=== PATIENT | female | born 1995 | race Caucasian/White ===

== ENCOUNTER → 2016-11-22 | Outpatient (CLI) | payer OTHER, BC ==
[2016-11-22 13:48] LABS: MANUAL MICROSCOPIC REQUIRED? NO; REVIEW REQ? NO; URINE APPEARANCE CLEAR (CLEAR); URINE BILIRUBIN NEG (NEG); URINE COLOR YELLOW; URINE EPITHELIAL CELL AUTO >30 /lpf (0-5); URINE NITRITE NEG (NEG); URINE PH 7.5 (4.5-7.5); URINE SPECIFIC GRAVITY 1.022 (1.000-1.030); UROBILINOGEN NEG (NEG)
== END | disposition home or self-care (01) ==
LOC: C.LABSPEC 13:15
PROVIDERS: ATTEND Obstetrics & Gynecology
DX: Z34.01 Encounter for supervision of normal first pregnancy, first trimester (principal)

== ENCOUNTER → 2016-11-29 | Outpatient (CLI) | payer OTHER, BC ==
[2016-11-29 10:17] LABS: BASO % 0.1 %; BASO ABS # 0.01 K/uL (0-0.2); COMPLETE YES; EOS % 0.6 %; HEMATOCRIT 40.2 % (37-47); IG% 0.1 %; LYMPH % 22.9 %; LYMPH ABS # 1.94 K/uL (1.2-3.4); MEAN CELL VOLUME 89.5 fL (80-100); MEAN CORPUSCULAR HEMOGLOBIN 30.5 pg (25-34); MEAN CORPUSCULAR HGB CONC 34.1 g/dl (32-36); MEAN PLATELET VOLUME 10.2 fL (7.4-10.4); MONO % 6.7 %; NEUT % 69.6 %; PLATELET COUNT 359 K/uL (130-400); RED BLOOD COUNT 4.49 M/uL (4.2-5.4); WHITE BLOOD COUNT 8.47 K/uL (4.8-10.8)
[2016-12-01 02:56] LABS: CHLAMYDIA TRACH RNA*** NOT DETECTED (NOT DETECTED); GC (NEIS GONORRHOEAE)RNA** NOT DETECTED (NOT DETECTED)
== END | disposition home or self-care (01) ==
LOC: C.LAB1850 09:02
PROVIDERS: ATTEND Obstetrics & Gynecology
DX: Z34.01 Encounter for supervision of normal first pregnancy, first trimester (principal)

== ENCOUNTER → 2017-01-24 | Outpatient (CLI) | payer OTHER, BC ==
[~2017-01-24] MED LIST: ACET-1256 PO; MISC-696; NITR1CAP16 PO; OXYC-57 PO; PRENTAB26 PO
[2017-01-24 13:53] LABS: GTGD 50 Grams
== END | disposition home or self-care (01) ==
LOC: C.LAB1850 08:55
PROVIDERS: ATTEND Obstetrics & Gynecology
DX: Z34.02 Encounter for supervision of normal first pregnancy, second trimester (principal)

== ENCOUNTER → 2017-03-21 | Outpatient (CLI) | payer OTHER, BC | END | disposition home or self-care (01) | LOC: C.CPL 10:48 | PROVIDERS: ATTEND Obstetrics & Gynecology | DX: O28.3 Abnormal ultrasonic finding on antenatal screening of mother (principal); Z3A.00 Weeks of gestation of pregnancy not specified ==

== ENCOUNTER → 2017-04-18 | Outpatient (CLI) | payer OTHER, BC ==
[2017-04-18 19:16] LABS: GTGD 50 Grams
== END ==
LOC: C.LAB1850 17:11
PROVIDERS: ATTEND Obstetrics & Gynecology
DX: Z34.03 Encounter for supervision of normal first pregnancy, third trimester (principal)

== ENCOUNTER → 2017-05-02 | Outpatient (CLI) | payer OTHER, BC ==
[2017-05-02 18:57] LABS: URINE APPEARANCE CLEAR (CLEAR); URINE BILIRUBIN NEG (NEG); URINE COLOR YELLOW; URINE EPITHELIAL CELL AUTO >30 /lpf (0-5); URINE NITRITE NEG (NEG); URINE PH 6.5 (4.5-7.5); URINE SPECIFIC GRAVITY 1.019 (1.000-1.030); UROBILINOGEN NEG (NEG)
[2017-05-02 19:02] LABS: MANUAL MICROSCOPIC REQUIRED? NO; REVIEW REQ? NO
== END | disposition home or self-care (01) ==
LOC: C.LABSPEC 17:48
PROVIDERS: ATTEND Obstetrics & Gynecology
DX: Z34.03 Encounter for supervision of normal first pregnancy, third trimester (principal)

== ENCOUNTER → 2017-06-13 | Outpatient (CLI) | payer OTHER, BC | END | disposition home or self-care (01) | LOC: C.LABSPEC 13:36 | PROVIDERS: ATTEND Obstetrics & Gynecology | DX: Z34.03 Encounter for supervision of normal first pregnancy, third trimester (principal) ==

== ENCOUNTER 2017-07-05 05:31 | Inpatient (IN) | payer BC ==
[~2017-07-05] VITALS: Ht 162.6 cm; Wt 81.0 kg
[2017-07-05] MEDS ORDERED: IV FLUIDS COMPLETED PRN (09:15)
[2017-07-05 09:16] LABS: HEMATOCRIT 36.1 % (37-47); MEAN CELL VOLUME 90.7 fL (80-100); MEAN CORPUSCULAR HEMOGLOBIN 30.9 pg (25-34); MEAN CORPUSCULAR HGB CONC 34.1 g/dl (32-36); MEAN PLATELET VOLUME 10.5 fL (7.4-10.4); PLATELET COUNT 235 K/uL (130-400); RED BLOOD COUNT 3.98 M/uL (4.2-5.4); WHITE BLOOD COUNT 9.62 K/uL (4.8-10.8)
[2017-07-05 11:04] LABS: URINE APPEARANCE CLEAR (CLEAR); URINE BILIRUBIN NEG (NEG); URINE COLOR YELLOW; URINE EPITHELIAL CELL AUTO >30 /lpf (0-5); URINE NITRITE NEG (NEG); URINE PH 6.5 (4.5-7.5); URINE SPECIFIC GRAVITY 1.011 (1.000-1.030); UROBILINOGEN NEG (NEG)
[2017-07-05] MEDS: ACETAMINOPHEN 325 MG TAB PO PRN ×2 (11:09→15:48)
[2017-07-05 11:13] LABS: MANUAL MICROSCOPIC REQUIRED? NO; REVIEW REQ? YES
[2017-07-05 11:40] LABS: URINE MUCUS PRESENT (NONE PRSENT)
[2017-07-05] MEDS ORDERED: NITROFURANTOIN MONOHYDRATE 100 MG CAP PO STA (12:58)
[2017-07-05] MEDS ORDERED: LACTATED RINGER'S 1000ML 1,000 ML IV SCH (14:30)
[2017-07-05 15:05] LABS: INFLUENZA A PCR Neg for Influ A (NEG); INFLUENZA B PCR Neg for Influ B (NEG)
[2017-07-05 15:22] VITALS: Ht 162.6 cm; Wt 81.0 kg
--- NOTE | 2017-07-05 15:44 | DIAGNOSTIC IMAGING REPORT ---
BIO PROF WITH NST-SINGLE CLINICAL HISTORY: 21 years-old Female presenting with maternal fever. TECHNIQUE: Real-time grayscale and M-mode Doppler ultrasound imaging of the pelvis was performed using a transabdominal probe. COMPARISON: None. FINDINGS: Uterus: Single live intrauterine third trimester . Normal breathing, tone, and movement. heart rate 141 beats per minute. Cephalic presentation. Normal amniotic fluid volume with an amniotic fluid index of 21 cm. Anterior placental implantation. No perigestational fluid to suggest hemorrhage. Cervix not assessed. Right adnexa: Not assessed. Left adnexa: Not assessed. Other: No free fluid. IMPRESSION: Ultrasound biophysical profile score 8/8, normal. Electronically signed by: Navid Hall M.D. 07/05/2017 3:42 PM Dictated Date/Time: 07/05/2017 3:38 PM
[2017-07-05] MEDS ORDERED: NITR1CAP16 PO ×2 (16:59)
--- NOTE | 2017-07-05 17:02 | Discharge Instructions ---
Discharge Instructions Date of Service Jul 05, 2017. Admission Reason for Admission: Check Rupture Discharge Discharge Diagnosis / Problem: flu like symptoms & leaking fluid Discharge Goals Goal(s): Continuing OB care Activity Recommendations Activity Limitations: per Instructions/Follow-up section . Instructions / Follow-Up Instructions / Follow-Up SPECIAL CARE INSTRUCTIONS: Call Doctor if: * Regular contractions every 5 minutes or greater than contractions in one hour. * Bleeding * Water breaks or is leaking with a continuous trickle * Decreased movement * Fever >100.4 degrees F * Pain not relieved by routine measures or pain medication ordered. FOLLOW UP VISIT: Return to Labor and Delivery on for /call for appointment time . Follow-up Visit with: __as scheduled___ When: Current Hospital Diet Patient's current hospital diet: Discharge Diet Recommended Diet: Regular Diet Pending Studies Studies pending at discharge: no Medical Emergencies . Who to Call and When: Medical Emergencies: If at any time you feel your situation is an emergency, please call 911 immediately. . Non-Emergent Contact Non-Emergency issues call your: Garbage Worker . . "Provider Documentation" section prepared by Domi Andersen. . VTE Core Measure Inpt VTE Proph given/why not?: Treatment not indicated
--- NOTE | 2017-07-06 02:11 | DISCHARGE SUMMARY ---
PRINCIPAL DIAGNOSIS: Leaking vaginal fluid and fever of unknown origin. Intrauterine at 39 weeks. HISTORY OF PRESENT ILLNESS: The patient is a 21-year-old 1, para 0 white female, who presented at 39.1 weeks with a chief complaint of leaking amniotic fluid. On initial evaluation, she was tested with a Nitrazine paper and it flashed blue. When further evaluated by Dr. Garner, there was no noted fluid on the pad or on her perineum. I then did a speculum exam and the vagina was dry with a jelly-like discharge. Even with coughing and Valsalva maneuver, there was no leaking of any amnionic fluid from the cervix. A swab of the vaginal vault revealed no Nitrazine change and no ferning, although there was some yeast on the slide. A urine was sent and she was noted to have 2+ blood and 1+ protein. Her blood pressure was normal during her stay in labor and delivery. Also, of note, on the urine micro there was presence of calcium oxalate crystals. Bacteria was negative. There were 28-30 epithelial cells present. Hemoglobin on admission was 12.3, hematocrit 36.1 with a white count of 9600. The patient had been complaining, also, of a fever to as high as 102 degrees Fahrenheit. She would start with a low-grade fever in the morning and it would progress to 102 by the end of the day. She does notice a kind of a low-grade sore throat and cough after several rounds of questioning. She denies any nausea, vomiting or other localizing signs. The patient was then ambulating in the hallway and was then reevaluated after another large gush of clear fluid. Again, this patient the Nitrazine flashed blue. A swab of the vaginal vault again revealed negative Nitrazine and no ferning. It was suspected that the blood in her urine was causing the Nitrazine to indicate a blue change. The patient received a biophysical profile and amniotic fluid index was 21 and it was an 8/8 score. The infant's heart rate was a category 1 with some areas of decreased [id number] variability. She was having mild contractions about every 3-4 minutes. Cervix inspection continued to be fingertip and 50% effaced. She received a liter of IV fluids and the patient reports that she felt better after the fluids. She had not eaten anything since approximately 0300 hours this morning and it now is 1600 hours. The suspicion is that she has some sort of urinary tract infection or a ureteral stone that she is passing. She did mention some left twinging pain off and on, but nothing that was severe or lasted more than a few seconds. Her does have a history of kidney stones as well and he is familiar with the pain that is associated with that. The patient was sent home and reassured that her membranes were not ruptured and started on Macrobid 1 p.o. b.i.d. for 7 days, pending the urine culture results. She is also given a strainer to strain her urine for any sand or kidney stones that she may pass prior to her next visit, which is scheduled for this coming , which is July 11. She is to call for any persistent leaking and not intermittent, as well as regular contractions lasting a minute every 5 minutes for at least an hour or any other concerns.
[2017-07-06] MEDS ORDERED: PRENTAB26 PO ×2 (03:48)
[2017-07-06] MEDS ORDERED: ACET-1256 PO ×2 (03:48)
== END 2017-07-05 17:44 | disposition home or self-care (01) | DRG 781 ==
LOC: C.OPB 05:31 → C.LD 05:32 → C.OPB 08:50 → C.LD 08:50
PROVIDERS: ADMIT Obstetrics & Gynecology; ATTEND Obstetrics & Gynecology
DX: O41.8X31 Other specified disorders of amniotic fluid and membranes, third trimester, fetus 1 (principal); O26.893 Other specified pregnancy related conditions, third trimester; R50.9 Fever, unspecified; Z3A.39 39 weeks gestation of pregnancy

== ENCOUNTER 2017-07-06 02:53 | Inpatient (IN) | payer OTHER, BC ==
[~2017-07-06] VITALS: Ht 162.6 cm; Wt 80.9 kg
[~2017-07-06 02:53] MED LIST changes: -ACET-1256 PO; -MISC-696; -OXYC-57 PO; -PRENTAB26 PO
[2017-07-06] MEDS ORDERED: ACET-1256 PO ×2 (03:48)
[2017-07-06] MEDS ORDERED: PRENTAB26 PO ×2 (03:48)
[2017-07-06] MEDS ORDERED: LACTATED RINGER'S 1000ML 500 ML IV ONE (04:01)
[2017-07-06] MEDS ORDERED: ACETAMINOPHEN 325 MG TAB PO PRN (04:15)
[2017-07-06] MEDS ORDERED: BUPIVACAINE 0.25% 30 ML VIAL ONE (05:11)
[2017-07-06] MEDS ORDERED: FENTANYL 2MCG/ML ROPIV 1.25MG/ML 100ML BAG EPI ONE (05:12)
[2017-07-06] MEDS ORDERED: EpHEDrine SULFATE INJ 50 MG/ML AMP ONE (05:12)
[2017-07-06] MEDS ORDERED: FENTANYL CITRATE INJ 50 MCG/1 ML 2 ML VIAL ONE (05:12)
[2017-07-06 05:31] LABS: HEMATOCRIT 34.2 % (37-47); MEAN CELL VOLUME 90.7 fL (80-100); MEAN CORPUSCULAR HEMOGLOBIN 29.7 pg (25-34); MEAN CORPUSCULAR HGB CONC 32.7 g/dl (32-36); MEAN PLATELET VOLUME 10.3 fL (7.4-10.4); PLATELET COUNT 205 K/uL (130-400); RED BLOOD COUNT 3.77 M/uL (4.2-5.4); WHITE BLOOD COUNT 9.88 K/uL (4.8-10.8)
[2017-07-06 05:35] VITALS: Ht 162.6 cm; Wt 80.9 kg
[2017-07-06] MEDS ORDERED: LACTATED RINGER'S 1000ML 1,000 ML IV PRN (05:54)
[2017-07-06] MEDS ORDERED: NALOXONE HCL INJ 1 MG in SODIUM CHLORIDE 0.9% 1000ML 1,000 ML IV PRN (06:05)
[2017-07-06] MEDS ORDERED: LACTATED RINGER'S 1000ML 500 ML IV PRN ×2 (06:05→10:34)
[2017-07-06] MEDS ORDERED: ONDANSETRON INJ 2 MG/ML 2 ML VIAL IV PRN (06:15)
[2017-07-06] MEDS ORDERED: FENTANYL 2MCG/ML ROPIV 1.25MG/ML 100ML BAG EPI PRN (06:15)
[2017-07-06] MEDS ORDERED: DiphenhydrAMINE HCL 50 MG/ML VIAL IV PRN (06:15)
[2017-07-06] MEDS ORDERED: NALBUPHINE HCL INJ 10 MG/ML AMP IV PRN (06:15)
[2017-07-06] MEDS ORDERED: EpHEDrine SULFATE INJ 50 MG/ML AMP IV PRN (06:15)
[2017-07-06] MEDS ORDERED: NALOXONE HCL INJ 0.4 MG/1 ML VIAL/CARP IV PRN (06:15)
[2017-07-06] MEDS: LACTATED RINGER'S 1000ML 1,000 ML IV SCH (09:03)
[2017-07-06] MEDS ORDERED: OXYTOCIN 30 UNITS/500ML NSS IV PRN (10:45)
[2017-07-06] MEDS ORDERED: CITRIC ACID/SODIUM CITRATE 15 ML UDC PO ONE (12:45)
[2017-07-06] MEDS ORDERED: CEFAZOLIN IV 2,000 MG in DEXTROSE 5% 50ML 50 ML IV SCH (13:00)
[2017-07-06] MEDS ORDERED: CHLOROPROCAINE HCL 3% 20 ML VIAL ONE (13:24)
[2017-07-06] MEDS ORDERED: SODIUM BICARB 8.4% INJ 50 MEQ/50 ML SYR IV ONE (13:25)
[2017-07-06] MEDS ORDERED: OXYTOCIN INJ 10 UNITS/ML VIAL ONE ×2 (13:26→13:46)
[2017-07-06] MEDS ORDERED: MoRPHine SULFATE PF 1 MG/ML 10 ML AMP/VIAL ONE (13:26)
[2017-07-06] MEDS ORDERED: LIDOCAINE/EPINEPHRINE 2% 1:200,000 20 ML SDV ONE (13:26)
[2017-07-06] MEDS ORDERED: METHYLERGONOVINE MALEATE 0.2 MG/ML AMP ONE (13:38)
[2017-07-06] MEDS ORDERED: ESMOLOL HCL 10 MG/ML 10 ML VIAL ONE (13:48)
[2017-07-06] MEDS ORDERED: METOPROLOL TARTRATE 1 MG/ML VIAL ONE (13:58)
[2017-07-06] MEDS ORDERED: MoRPHine SULFATE PF 1 MG/ML 10 ML AMP/VIAL EPI PRN (14:00)
[2017-07-06] MEDS ORDERED: DC INTRASPINAL MORPHINE PRN (14:00)
[2017-07-06] MEDS ORDERED: CONTINUE MEDICATION SCH (14:00)
[2017-07-06] MEDS ORDERED: MoRPHine SULFATE 2 MG/ML CARP IV PRN (14:00)
[2017-07-06] MEDS ORDERED: NO NARCOTICS OR SEDATIVES SCH (14:00)
[2017-07-06] MEDS ORDERED: OXYTOCIN INJ 30 UNITS in LACTATED RINGER'S 1000ML 1,000 ML IV SCH (14:43)
[2017-07-06] MEDS ORDERED: LANOLIN OINT EXT PRN ×2 (14:45)
[2017-07-06] MEDS ORDERED: HYDROCORTISONE ACETATE 25 MG SUPP PR PRN (14:45)
[2017-07-06] MEDS ORDERED: BENZOCAINE 20% AER SPR 82.5 GM CAN EXT PRN (14:45)
[2017-07-06] MEDS ORDERED: SUPERCREAM 0.870 % 15GM JAR EXT PRN (14:45)
--- NOTE | 2017-07-06 14:49 | Anesthesiology Progress Note ---
Anesthesia Post Op Note Date & Time Jul 06, 2017 at 14:48 Vital Signs Pain Intensity: 0.0 Notes Mental Status: alert / awake / arousable, participated in evaluation Pt Amnestic to Procedure: Yes Nausea / Vomiting: adequately controlled Pain: adequately controlled Airway Patency, RR, SpO2: stable & adequate BP & HR: stable & adequate, see Notes Hydration State: stable & adequate Neuraxial Anesthesia: was administered, sensory block is resolving Anesthetic Complications: no major complications apparent The patient is tachycardic and febrile likely related to her underlying infection. She is otherwise comfortable and doing well.
--- NOTE | 2017-07-06 15:08 | [facility] Post Operative Brief Note ---
Immediate Operative Summary Operative Date Jul 06, 2017. Pre-Operative Diagnosis Term , SROM. Non reassuring heart rate tracing - Cat 3. Chorioamnioitis. Post-Operative Diagnosis same Procedure(s) Performed Caesarean section Surgeon Dr. Nakita Wright Pediatric Physical Therapy Assistant Surgeon(s) Melanie Ventura RN Estimated Blood Loss 700ml Findings Viable female , Apgars 7/9. Weight pending. Normal appearing uterus, tubes, ovaries. Boggy uterus at time of delivery - firmed after IM methergine injected into uterus. Specimens A- Cord gassess B- Placenta (Exam) C- Cord Blood Drains keith, clear yellow Anesthesia epidural re-dosed Complication(s) None Disposition L&D
[2017-07-06] MEDS ORDERED: METHYLERGONOVINE MALEATE 0.2 MG/ML AMP IM ONE (15:21)
[2017-07-06] MEDS ORDERED: LACTATED RINGER'S 1000ML 1,000 ML IV SCH (15:30)
[2017-07-06] MEDS ORDERED: AMPICILLIN IV 2,000 MG in SODIUM CHLOR 0.9% AD-VAN 100ML 100 ML IV STA (16:03)
[2017-07-06] MEDS: CLINDAMYCIN IV 900 MG in DEXTROSE 5% 100ML 100 ML IV SCH (16:18)
[2017-07-06 16:19] LABS: CREATININE 0.74 mg/dl (0.60-1.20)
[2017-07-06] MEDS ORDERED: DEXTROSE 5% IV ONE (16:30)
[2017-07-06] MEDS ORDERED: GENTAMICIN IV ONE (16:30)
--- NOTE | 2017-07-06 16:58 | OPERATIVE REPORT ---
DATE OF OPERATION: 07/06/2017 PREOPERATIVE DIAGNOSES: 1. A 21-year-old G1, P0 at 39 weeks 2 days. 2. Spontaneous rupture of membranes. 3. Augmentation of labor. 4. Nonreassuring heart tracing, category 3. 5. Chorioamnionitis. POSTOPERATIVE DIAGNOSES: Same. PROCEDURE PERFORMED: Primary low transverse section. SURGEON: Nakita Wright DO. CARE TECH: Ana Ventura RN. ESTIMATED BLOOD LOSS: 700 mL. FINDINGS: Viable female . Apgars 7 and 9. Weight pending. Please see nursery records. Normal appearing uterus, tubes, and ovaries. Boggy uterus at the time of delivery confirmed after IM Methergine was injected into the uterus. SPECIMENS: Cord blood gases, placenta and cord blood. DRAINS: Wolff, clear yellow. ANESTHESIA: Epidural redosed. COMPLICATIONS: None. DISPOSITION: Stable and good to labor and delivery room. INDICATIONS FOR PROCEDURE: The patient is a 21-year-old G1, P0 at 39 weeks 2 days, who had presented to labor and delivery with spontaneous rupture of membranes, labor was then augmented. She progressed to 4.5-cm dilation; however, began showing nonreassuring heart tracing with recurrent late decelerations. All resuscitative measures failed and therefore, section was performed. DESCRIPTION OF PROCEDURE: The patient was seen in her room on labor and delivery and risks, benefits, and alternatives to surgery were reviewed. She elected to proceed with section. Informed consent was obtained. All questions were answered. The patient was taken to the operating room, where epidural anesthesia was redosed. She was then prepared in the usual sterile fashion in the supine position with a leftward tilt. A timeout was confirmed. A Pfannenstiel skin incision was made with a scalpel and carried through to the underlying layer of the fascia. Fascia was nicked at midline and this incision was extended laterally bluntly. The superior aspect of the fascial incision was grasped with Chidi clamps x2, elevated off the underlying rectus abdominis muscles and dissected off bluntly. In a similar fashion, the inferior aspect of the incision was dissected. The rectus abdominis muscles were entered digitally at midline and the peritoneum was entered digitally bluntly. This incision was extended bluntly. The bladder blade was placed. The bladder flap was dissected using Metzenbaum scissors. The bladder blade was replaced. A new scalpel was used to create a low transverse uterine incision. This incision was extended cephalad caudad manually with thick meconium fluid noted. The was delivered from a cephalic presentation. The head delivered followed by the anterior and posterior shoulders followed by the body. The cord was doubly clamped and cut and the baby was handed off to the waiting pediatrics team. Cord segment was obtained for cord gases. Cord blood was obtained. The placenta was then delivered spontaneously intact with a 3-vessel cord. The uterus was cleared of all clots and debris and was noted to be extremely boggy. Pitocin was given at wide open drip and 0.2 mL of Methergine was injected directly into the uterine wall. The hysterotomy incision was reapproximated using 0 Vicryl in a running locked stitch. A second layer of the same suture was used to imbricate this stitch. The uterus became firm. Multiple sutures of 3-0 Vicryl were used at the hysterotomy incision to oversew the incision to achieve better hemostasis. The uterus was placed back into the abdomen. Prior to inserting the uterus back into the abdomen, the posterior uterus was evaluated and the gutters were cleared of all clots and debris. The uterus was then returned. The hysterotomy incision was evaluated again and noted to be hemostatic. The fascial incision was reapproximated using 0 Vicryl in a running stitch. The subcutaneous tissue was irrigated and reapproximated with 2-0 plain gut suture. The skin incision was then reapproximated using 4-0 Vicryl in a running subcuticular stitch. Steri-Strips and a dressing were applied. The patient was then taken to the recovery area in stable and good condition. She and the baby tolerated the procedure well. I attest to the content of the Intraoperative Record and any orders documented therein. Any exception s are noted below.
[2017-07-06] MEDS: SIMETHICONE 80 MG CHEW PO SCH (17:24)
[2017-07-06 18:09] LABS: HEMATOCRIT 27.5 % (37-47); MEAN CELL VOLUME 90.5 fL (80-100); MEAN CORPUSCULAR HEMOGLOBIN 29.9 pg (25-34); MEAN CORPUSCULAR HGB CONC 33.1 g/dl (32-36); MEAN PLATELET VOLUME 10.3 fL (7.4-10.4); PLATELET COUNT 173 K/uL (130-400); RED BLOOD COUNT 3.04 M/uL (4.2-5.4); WHITE BLOOD COUNT 14.58 K/uL (4.8-10.8)
[2017-07-06 19:05] VITALS: BP 117/55; PULSE 101; TEMP 37.2; O2SAT 97
[2017-07-06 19:38] VITALS: TEMP 37
[2017-07-06] MEDS ORDERED: AMPICILLIN IV 2,000 MG in SODIUM CHLOR 0.9% AD-VAN 100ML 100 ML IV SCH (20:00)
[2017-07-06 21:00] VITALS: BP 115/76; PULSE 97; TEMP 37.3; O2SAT 96
[2017-07-06] MEDS: DOCUSATE SODIUM 100 MG CAP PO SCH (21:00)
[2017-07-06 22:00] VITALS: O2SAT 95
[2017-07-06] MEDS: AMPICILLIN IV 2,000 MG in SODIUM CHLOR 0.9% AD-VAN 100ML 100 ML IV SCH (22:25)
[2017-07-06 23:30] VITALS: O2SAT 96
[2017-07-07] VITALS (18 sets, daily range): BP systolic 97–128; BP diastolic 62–80; PULSE 84–115; TEMP 36.4–37.6; O2SAT 95–99
[2017-07-07] MEDS: CLINDAMYCIN IV 900 MG in DEXTROSE 5% 100ML 100 ML IV SCH ×2 (00:16→07:35)
[2017-07-07] MEDS: KETOROLAC TROMETHAMINE 30 MG/ML VIAL IV. PRN ×2 (00:30→07:35)
[2017-07-07] MEDS: AMPICILLIN IV 2,000 MG in SODIUM CHLOR 0.9% AD-VAN 100ML 100 ML IV SCH ×3 (04:22→16:39)
[2017-07-07] MEDS: LACTATED RINGER'S 1000ML 1,000 ML IV SCH (06:24)
[2017-07-07 06:54] LABS: BASO % 0.1 %; BASO ABS # 0.01 K/uL (0-0.2); COMPLETE YES; EOS % 0.7 %; HEMATOCRIT 28.8 % (37-47); IG% 0.4 %; LYMPH % 14.5 %; LYMPH ABS # 2.21 K/uL (1.2-3.4); MEAN CELL VOLUME 90.6 fL (80-100); MEAN CORPUSCULAR HEMOGLOBIN 30.2 pg (25-34); MEAN CORPUSCULAR HGB CONC 33.3 g/dl (32-36); MEAN PLATELET VOLUME 10.4 fL (7.4-10.4); MONO % 6.4 %; NEUT % 77.9 %; PLATELET COUNT 185 K/uL (130-400); RED BLOOD COUNT 3.18 M/uL (4.2-5.4); WHITE BLOOD COUNT 15.23 K/uL (4.8-10.8)
--- NOTE | 2017-07-07 09:45 | Progress Note ---
Subjective Jul 07, 2017. Subjective conversation w/ patient, physical exam Ambulation: limited ambulation Voiding: no voiding problems, keith catheter in place Passing Gas: No Diet Tolerance: Clear Liquids Lochia: Moderate Feeding Type: Breast Feeding Pain: controlled with meds Review of Systems Constitutional: No problem reported Respiratory: No problem reported Cardiac: No problem reported Breast: No problem reported Abdomen: No problem reported Female : No problem reported Objective Vital Signs Date Time Temp Pulse Resp B/P (MAP) Pulse Ox O2 Delivery O2 Flow Rate FiO2 07/07/17 06:30 18 96 07/07/17 05:30 18 95 07/07/17 04:15 36.7 90 18 97/62 (74) 96 Room Air 07/07/17 04:15 18 96 07/07/17 03:35 18 96 07/07/17 02:30 16 95 07/07/17 01:30 18 98 07/07/17 00:35 16 97 07/07/17 00:35 97 Room Air 07/07/17 00:35 37.2 98 16 111/66 (81) 97 Room Air 07/06/17 23:30 16 96 07/06/17 22:00 20 95 07/06/17 21:00 20 96 07/06/17 21:00 37.3 97 20 115/76 (89) 96 Room Air 07/06/17 19:38 37.0 07/06/17 19:05 97 Room Air 07/06/17 19:05 37.2 101 18 117/55 (75) 97 Room Air 07/06/17 19:05 18 97 Physical Exam General Appearance: WELL-APPEARING, NO APPARENT DISTRESS Respiratory/Chest: no respiratory distress Cardiovascular: regular rate, rhythm Abdomen: non tender, soft Fundus: Firm Incision Description: Clean, Dry & Intact Extremities: normal inspection Laboratory Results Last 24 Hours Test 07/06/17 15:35 07/06/17 17:53 07/07/17 05:33 Creatinine 0.74 mg/dl Est Creatinine Clear Calc Drug Dose 121.7 ml/min Estimated GFR () 132.4 Estimated GFR (Non- 114.2 White Blood Count 14.58 K/uL 15.23 K/uL Red Blood Count 3.04 M/uL 3.18 M/uL Hemoglobin 9.1 g/dL 9.6 g/dL Hematocrit 27.5 % 28.8 % Mean Corpuscular Volume 90.5 fL 90.6 fL Mean Corpuscular Hemoglobin 29.9 pg 30.2 pg Mean Corpuscular Hemoglobin Concent 33.1 g/dl 33.3 g/dl RDW Standard Deviation 45.5 fL 46.3 fL RDW Coefficient of Variation 13.8 % 13.8 % Platelet Count 173 K/uL 185 K/uL Mean Platelet Volume 10.3 fL 10.4 fL Neutrophils (%) (Auto) 77.9 % Lymphocytes (%) (Auto) 14.5 % Monocytes (%) (Auto) 6.4 % Eosinophils (%) (Auto) 0.7 % Basophils (%) (Auto) 0.1 % Neutrophils # (Auto) 11.87 K/uL Lymphocytes # (Auto) 2.21 K/uL Monocytes # (Auto) 0.97 K/uL Eosinophils # (Auto) 0.11 K/uL Basophils # (Auto) 0.01 K/uL Immature Granulocyte % (Auto) 0.4 % Immature Granulocyte # (Auto) 0.06 K/uL Assessment and Plan Post-Op Day#: 1 Continue Routine Care: POD#1 s/p primary low transverse section. Doing well. Today, will remove keith, encourage ambulation, and advance diet as tolerated.
[2017-07-07] MEDS: SIMETHICONE 80 MG CHEW PO SCH ×4 (10:16→20:11)
[2017-07-07] MEDS: DOCUSATE SODIUM 100 MG CAP PO SCH ×2 (10:17→20:11)
[2017-07-07] MEDS ORDERED: ONDANSETRON INJ 2 MG/ML 2 ML VIAL IV PRN (13:30)
[2017-07-07] MEDS ORDERED: DiphenhydrAMINE HCL 50 MG/ML VIAL IV PRN (13:30)
[2017-07-07] MEDS ORDERED: OXYCODONE/ACETAMINOPHEN 5-325 TAB PO PRN (13:30)
[2017-07-07] MEDS ORDERED: PROMETHAZINE HCL INJ 25 MG in SODIUM CHLORIDE 0.9% 50ML 50 ML IV PRN (13:30)
[2017-07-07] MEDS ORDERED: KETOROLAC TROMETHAMINE 30 MG/ML VIAL IV. PRN (13:30)
[2017-07-07] MEDS: OXYCODONE/ACETAMINOPHEN 5-325 TAB PO PRN ×2 (13:33→18:06)
[2017-07-07] MEDS: IBUPROFEN 600 MG TAB PO PRN ×2 (13:33→18:05)
[2017-07-07] MEDS: MAGNESIUM HYDROXIDE SUSP 30 ML UDC PO PRN (18:05)
[2017-07-07] MEDS ORDERED: NURSING VERBAL MED ORDER ONE (21:45)
[2017-07-07] MEDS ORDERED: BISACODYL 5 MG TABEC PO ONE (22:00)
[2017-07-08 00:05] VITALS: BP 113/70; PULSE 96; TEMP 36.3; O2SAT 98
[2017-07-08] MEDS: OXYCODONE/ACETAMINOPHEN 5-325 TAB PO PRN ×2 (01:06→08:43)
[2017-07-08] MEDS: IBUPROFEN 600 MG TAB PO PRN ×4 (01:06→17:42)
[2017-07-08] MEDS ORDERED: BISACODYL 10 MG SUPP PR PRN (02:30)
[2017-07-08 05:30] VITALS: BP 107/74; PULSE 80; TEMP 36.2
[2017-07-08] MEDS: MAGNESIUM HYDROXIDE SUSP 30 ML UDC PO PRN (05:57)
[2017-07-08] MEDS ORDERED: MAGNESIUM HYDROXIDE SUSP 30 ML UDC PO ONE (06:30)
--- NOTE | 2017-07-08 07:00 | Progress Note ---
Subjective Jul 08, 2017. Subjective conversation w/ patient, physical exam, chart review, lab review Ambulation: ambulating normally Voiding: no voiding problems, keith catheter in place Passing Gas: Yes (and loose stool this am) Diet Tolerance: Regular Diet Lochia: Small Feeding Type: Breast Feeding (and bottle) Pain: notes low pain and cramping mostly with walking Comment: Found pt resting comfortably, had some loose stools which helped with abd discomfort, otherwise no acute concerns. Review of Systems Constitutional: No fever, No chills Respiratory: No cough, No shortness of breath Cardiac: No chest pain, No edema Abdomen: + diarrhea, No nausea, No vomiting Female : No dysuria Objective Vital Signs Date Time Temp Pulse Resp B/P (MAP) Pulse Ox O2 Delivery O2 Flow Rate FiO2 07/08/17 05:30 36.2 80 18 107/74 (85) 07/08/17 00:05 98 Room Air 07/08/17 00:05 36.3 96 18 113/70 (84) 98 Room Air 07/07/17 20:20 36.4 84 18 117/72 (87) 99 07/07/17 16:00 Room Air 07/07/17 16:00 36.4 96 20 115/77 (90) 07/07/17 14:30 37.0 07/07/17 13:30 16 99 07/07/17 12:30 37.6 114 16 120/80 (93) 07/07/17 12:30 16 99 07/07/17 11:30 20 99 07/07/17 10:30 20 97 07/07/17 09:30 18 96 07/07/17 08:30 20 96 07/07/17 07:45 Room Air 07/07/17 07:45 36.8 115 20 128/77 (94) 07/07/17 07:30 20 95 Physical Exam General Appearance: WELL-APPEARING, WD/WN, NO APPARENT DISTRESS Respiratory/Chest: lungs clear, normal breath sounds, no respiratory distress Cardiovascular: regular rate, rhythm, no edema, no murmur Abdomen: normal bowel sounds, non tender, soft Fundus: Firm, Non-Tender, Relation to Umbilicus (at umbilicus) Incision Description: Clean, Dry & Intact (steristrips in place, no d/c or surrounding erythema) Extremities: normal range of motion, non-tender, no pedal edema, no calf tenderness Laboratory Results Last 24 Hours Test 07/08/17 06:00 Assessment and Plan Post-Op Day#: 2 Continue Routine Care: 21F s/p for non-reassuring FHT and recurrent late decels, now PPD #2. - Blood type A positive. GBS negative. Rubella immune. - Vital signs reviewed and stable. - Pain controlled with motrin and percocet. - No leg swelling or tenderness on calf palpation. Encourage ambulation. - Encourage breast feeding. - Hemoglobin pre-delivery 11.2, post-delivery trended to 9.6. Bleeding has improved. Continue to monitor clinically. - Continue routine post delivery care. - Pt agreed with above plan, all current questions answered. Tony Clemente MD, PGY1 Training And Development Project Leader Physician Supervision Note: I was present with Dr. Clemente during the history and exam. I discussed the case with the resident and agree with the findings and plan as documented in the note. Any exceptions or clarifications are listed here: POD#2 doing well. Continue routine postop care. Anticipate discharge tomorrow. Documented By: Nakita Wright Resident Tracking Resident Involvement: Resident Care Provided Care Provided: OB Delivery (OB rounds)
[2017-07-08 07:22] LABS: HEMATOCRIT 28.1 % (37-47)
[2017-07-08 08:00] VITALS: BP 103/69; PULSE 85; TEMP 36.3; O2SAT 99
[2017-07-08] MEDS: DOCUSATE SODIUM 100 MG CAP PO SCH ×2 (08:43→20:00)
[2017-07-08] MEDS: SIMETHICONE 80 MG CHEW PO SCH ×4 (08:43→20:07)
[2017-07-08 16:45] VITALS: BP 107/70; PULSE 87; TEMP 36.5; O2SAT 98
[2017-07-08 23:15] VITALS: BP 105/70; PULSE 87; TEMP 36.5
[2017-07-09] MEDS: IBUPROFEN 600 MG TAB PO PRN ×2 (03:52→08:57)
--- NOTE | 2017-07-09 07:29 | Progress Note ---
Subjective Jul 09, 2017. Subjective conversation w/ patient, physical exam, chart review, lab review Ambulation: ambulating normally Voiding: no voiding problems, keith catheter in place Passing Gas: Yes Diet Tolerance: Regular Diet Feeding Type: Breast Feeding (and bottle) Pain: Says cramping much improved since onset of loose stools Comment: Found pt resting comfortably. Says has ongoing loose non-bloody stools but abdomen feels much improved. No N/V. Denies any other acute concerns. Review of Systems Constitutional: No fever, No chills Respiratory: No cough, No shortness of breath Cardiac: No chest pain, No edema Abdomen: + diarrhea, No nausea, No vomiting Female : No dysuria Objective Vital Signs Date Time Temp Pulse Resp B/P (MAP) Pulse Ox O2 Delivery O2 Flow Rate FiO2 07/08/17 23:15 36.5 87 16 105/70 (82) Room Air 07/08/17 23:15 Room Air 07/08/17 16:45 36.5 87 20 107/70 (82) 98 Room Air 07/08/17 16:45 Room Air 07/08/17 08:00 Room Air 07/08/17 08:00 36.3 85 20 103/69 (80) 99 Room Air Physical Exam General Appearance: WELL-APPEARING, WD/WN, NO APPARENT DISTRESS Respiratory/Chest: lungs clear, normal breath sounds, no respiratory distress Cardiovascular: regular rate, rhythm, no edema, no murmur Abdomen: normal bowel sounds, non tender, soft Fundus: Firm, Non-Tender, Relation to Umbilicus (approx one down) Incision Description: Clean, Dry & Intact (no d/c, erythema, and steristrips in place) Extremities: normal range of motion, no pedal edema, no calf tenderness Assessment and Plan Post-, Post-Op Day#: 3 Continue Routine Care: 21F s/p for non-reassuring FHT and recurrent late decels, now PPD #3. - Blood type A positive. GBS negative. Rubella immune. - Vital signs reviewed and stable. - Pain controlled with motrin and percocet. - No leg swelling or tenderness on calf palpation. Encourage ambulation. - Encourage breast feeding. - Hemoglobin pre-delivery 11.2, post-delivery trended to 9.6. Continue to monitor clinically. - Continue routine post delivery care. Discharge instructions reviewed with pt. - Pt agreed with above plan, all current questions answered. Tony Clemente MD, PGY1 Road Oiler Physician Supervision Note: I interviewed and examined the patient. Discussed with Dr. Clemente and agree with findings and plan as documented in the note. Any exceptions or clarifications are listed here: [None] Documented By: Jess Dunlap Resident Tracking Resident Involvement: Resident Care Provided Care Provided: OB Delivery (OB rounds)
--- NOTE | 2017-07-09 07:47 | Discharge Instructions ---
Discharge Instructions Date of Service Jul 09, 2017. Admission Reason for Admission: LABOR Discharge Discharge Diagnosis / Problem: Recovery from Discharge Goals Goal(s): Routine recovery after Medications Continue Dispensed Medications: supercream, dermaplast, tucks, lansinoh Activity Recommendations Activity Limitations: per Instructions/Follow-up section . Instructions / Follow-Up Instructions / Follow-Up ACTIVITY RECOMMENDATIONS: * Gradual return to full activity over the next 2-3 weeks. * No lifting - nothing heavier than baby over the next 2-3 weeks. * Do not engage in vigorous exercise, sexual activity or sports until cleared by your physician. * Do not drive or operate any motorized equipment until cleared by your physician. * You may shower/bathe daily. MEDICATIONS: For discomfort or pain, you may use Acetaminophen (Tylenol), Ibuprofen (Advil), or Naproxen (Aleve) following the package directions. For constipation you may use Colace following the package directions. BREAST CARE: If you are not breast feeding: * Wear a supportive bra 24 hours a day for one to two weeks. * Avoid stimulating your breasts and nipples as much as possible during the first few weeks after delivery. * When taking a shower, have the warm water hit your back, not breasts. * When your breasts feel full, apply ice packs. Usually three to four times a day helps ease the discomfort. * Take a mild pain medication (Tylenol / Motrin) when you are uncomfortable. If breast feeding: * Use breast milk to lubricate nipples. Lansinoh cream may be used for sore nipples. You do not need to remove cream prior to breast feeding. If using a different brand of cream, check the label for directions regarding removal of cream prior to nursing. * Wear a supportive bra. * If having problems with breasts or breast feeding, call a product safety consultant or your health care provider. SPECIAL CARE INSTRUCTIONS: When you are discharged from the hospital, it is important for you to follow the instructions listed below: * During the first week at home, you should be able to care for yourself and your baby. In addition, the usual light household activities are encouraged. * Limit your activities to the way you feel. Do not try to clean the house or move furniture. Be sensible. * If you actively engage in sports and have done so up until the time of your delivery, you may resume these activities as soon as you feel able. This may take up to one month or even longer. Use good judgment. * Continue to take your vitamins for at least six weeks after the of your baby. * Your diet need not be limited unless you were on a special diet before your delivery. Breast-feeding mothers need around 2500 calories per day and at least 64-80 ounces of fluid per day (8 to 10 glasses). * You should eat foods from the four major food groups. Crash diets or fad diets are to be avoided. Eating lean meats, fresh fruits and vegetables, low-fat dairy products, high fiber foods and a regular exercise program, will help you get back to your pre- weight without putting your health at risk. * Constipation is sometimes a problem after delivery. Take a mild laxative as needed. If breast feeding, Milk of Magnesia is acceptable to use. You may use a suppository or Fleets enema. * A daily shower or tub bath is suggested. Wash incision daily with warm soapy water and pat dry. It doesn't need to be covered unless drainage is present. * A bloody vaginal discharge will usually continue until around four weeks . A small amount of bleeding may continue for as long as six weeks. Vaginal discharge changes from the bright red bleeding after delivery to pink then brownish and finally yellowish-pink before becoming white and disappearing. * Bleeding may increase with activity. Your first period may come in 4-8 weeks. If you are breast feeding, your period may be delayed even longer. * [place] (sex) can begin whenever both you and your partner feel comfortable and do not have any form of genital infection. It is recommended that you wait at least six weeks for internal and external healing to occur. If you have questions, please talk to your health care practitioner. A condom should be used to prevent infection and . * Foreplay, gentle intercourse and lubrication is very important the first several times to prevent pain. A water-based lubricant such as K-Y jelly or Astroglide may be used. * If you have RH negative blood and your baby is RH positive, you will receive RHOGAM by injection prior to discharge. The nurse will give you a card to keep with you that has the date and place that you received RHOGAM after delivery. * During your care, you had a Rubella screen done to check for the presence of rubella antibodies in your blood. If your test was negative, you will receive a Rubella vaccine prior to discharge. This vaccine may cause a fever, soreness at the injection site and flu-like symptoms. If these symptoms persist, notify your health care practitioner. is not advised for one month after a Rubella vaccine. * Verbalizes understanding of car seat law as reviewed with patient nursing. * Car Seat hand-out given and reviewed with patient by nursing. * Shaken baby information reviewed with patient by nursing. Call you doctor if: * Heavy bleeding (saturating several pads an hour) or passing clots the size of your fist. * A fever >101 degrees F (38.3 degrees C) on two occasions four hours apart and /or chills. * Unusual pain in the pelvic or vaginal areas. * Call the doctor for any increased redness, drainage or swelling around the incision and any pain unrelieved by prescribed pain medication. * "Baby Blues" lasting longer than two weeks. If you have any questions or concerns, call your health care practitioner at . FOLLOW UP VISIT: * Please call the office at to schedule a 6 week examination. It is important you keep this appointment. It is important for you to make arrangements for either yearly or twice yearly check-ups thereafter. Current Hospital Diet Patient's current hospital diet: Regular OB Diet Discharge Diet Recommended Diet: Regular OB Diet Procedures Procedures Performed: Caesarean section Pending Studies Studies pending at discharge: yes List of pending studies: Placenta exam Medical Emergencies . Who to Call and When: Medical Emergencies: If at any time you feel your situation is an emergency, please call [phone] immediately. . Non-Emergent Contact Non-Emergency issues call your: Help Desk Technician . . "Provider Documentation" section prepared by Tony Clemente. . VTE Core Measure Inpt VTE Proph given/why not?: Treatment not indicated
[2017-07-09] MEDS ORDERED: MISC-696 ×2 (07:54)
[2017-07-09] MEDS: DOCUSATE SODIUM 100 MG CAP PO SCH (08:00)
[2017-07-09 08:30] VITALS: BP 119/71; PULSE 96; TEMP 36.6; O2SAT 98
[2017-07-09] MEDS ORDERED: OXYC-57 PO ×4 (08:37→10:57)
[2017-07-09] MEDS: SIMETHICONE 80 MG CHEW PO SCH (08:55)
[2017-07-09 11:40] VITALS: BP_DIAS 71; PULSE 96; TEMP 36.6
== END 2017-07-09 11:40 | disposition home or self-care (01) | DRG 765 ==
LOC: C.OPB 02:53 → C.LD 02:57 → C.OPB 04:41 → C.LD 04:42 → C.OBG 20:04
PROVIDERS: ADMIT Obstetrics & Gynecology; ATTEND Obstetrics & Gynecology
PROC: 10D00Z1 Extraction of Products of Conception, Low, Open Approach (ICD-10-PCS; principal; 2017-07-06 13:28)
DX: O76 Abnormality in fetal heart rate and rhythm complicating labor and delivery (principal); O41.1230 Chorioamnionitis, third trimester, not applicable or unspecified; Z3A.39 39 weeks gestation of pregnancy; Z37.0 Single live birth